=== PATIENT | female | born 1970 | race Caucasian/White ===

== ENCOUNTER → 2016-12-24 | Outpatient (CLI) | payer OTHER | END | disposition home or self-care (01) | LOC: RAD 20:55 | PROVIDERS: ATTEND Physician Assistant | DX: R05 Cough (principal) | CPT/HCPCS: 71020 ==

== ENCOUNTER → 2017-05-17 | Outpatient (CLI) | payer OTHER | END | disposition home or self-care (01) | LOC: CFH 10:09 | PROVIDERS: ATTEND Physician Assistant Surgical | DX: M22.42 Chondromalacia patellae, left knee (principal); M25.462 Effusion, left knee; R60.0 Localized edema ==

== ENCOUNTER → 2018-02-13 | Outpatient (CLI) | payer OTHER ==
[~2018-02-13] MED LIST: HYDR200T72 PO; MULT-658 PO; MYCO500T PO
== END ==
LOC: STAR 08:19
PROVIDERS: ATTEND Orthopaedic Surgery
DX: Z02.9 Encounter for administrative examinations, unspecified (principal)

== ENCOUNTER 2018-02-20 10:33 | Day surgery (SDC) | payer OTHER ==
[~2018-02-20] VITALS: Ht 158.8 cm; Wt 66.1 kg
[~2018-02-20 10:33] MED LIST changes: +BUPIVACAINE/PF-EPI 0.5% 1:200K ONE; +EPINEPHRINE 1 MG/ML, 1ML ONE; +LIDOCAINE-MPF 1%, 5ML ONE
[2018-02-20] MEDS ORDERED: MIDAZOLAM 1 MG/ML, 2ML ONE (11:03)
[2018-02-20] MEDS ORDERED: FENTANYL PF 250 MCG/5ML ONE (11:04)
[2018-02-20] MEDS ORDERED: PROPOFOL 10 MG/ML, 20ML ONE (11:06)
[2018-02-20] MEDS ORDERED: ONDANSETRON 2MG/ML, 2ML ONE ×2 (11:07)
[2018-02-20] MEDS ORDERED: DEXAMETHASONE 4 MG/ML, 1ML ONE ×2 (11:07)
[2018-02-20] MEDS ORDERED: WATER-INJECTION,STERILE 10 ML IV ONE (11:16)
[2018-02-20] MEDS ORDERED: CEFAZOLIN 1,000 MG ONE ×2 (11:16)
[2018-02-20 11:29] LABS: HCG UR SG 1.023 (1.003-1.030)
[2018-02-20] MEDS ORDERED: ONDANSETRON 2MG/ML, 2ML IV PRN (11:30)
[2018-02-20] MEDS ORDERED: HYDROmorphone 1 MG/ML, 1ML IV PRN (11:30)
[2018-02-20] MEDS ORDERED: LACTATED RINGERS 1,000 ML IV SCH (11:30)
[2018-02-20] MEDS ORDERED: ONDANSETRON ODT 8 MG PO PRN (11:30)
[2018-02-20] MEDS ORDERED: PROMETHAZINE 25 MG SUPP PR PRN (11:30)
[2018-02-20] MEDS ORDERED: ACETAMINOPHEN 325 MG TABLET PO PRN (11:30)
[2018-02-20] MEDS ORDERED: hydrALAzine 20 MG/ML, 1ML IV PRN (11:30)
[2018-02-20] MEDS ORDERED: PROMETHAZINE 25 MG/ML, 1ML IV PRN (11:30)
[2018-02-20] MEDS ORDERED: LABETALOL 5MG/ML, 20ML IV PRN (11:30)
[2018-02-20] MEDS ORDERED: MORPHINE SULFATE 4 MG/ML, 1ML IVPush PRN (11:30)
[2018-02-20] MEDS ORDERED: MEPERIDINE/PF 25MG/0.5ML IVPush PRN (11:30)
[2018-02-20] MEDS ORDERED: PROMETHAZINE 12.5 MG SUPP PR PRN (11:30)
[2018-02-20] MEDS ORDERED: LIDOCAINE-MPF 1%, 2ML INFIL ONE (11:30)
[2018-02-20] MEDS ORDERED: OXYcodone 5 MG/5 ML ORAL.SOL UDC PO PRN (11:30)
[2018-02-20] MEDS ORDERED: KETOROLAC 30 MG/1 ML ONE (12:08)
[2018-02-20] MEDS ORDERED: LIDOCAINE 1%-EPI 1:100K, 30ML INFIL ONE (12:20)
[2018-02-20] MEDS ORDERED: BUPIVACAINE/PF-EPI 0.5% 1:200K INFIL ONE (12:21)
[2018-02-20] MEDS ORDERED: OXYcodone 5 MG/5 ML ORAL.SOL UDC ONE (12:59)
[2018-02-20] MEDS ORDERED: FENTANYL PF 100 MCG/2ML ONE (12:59)
[2018-02-20] MEDS: FENTANYL PF 100 MCG/2ML IV PRN ×2 (13:03→13:11)
[2018-02-20] MEDS ORDERED: DIPHENHYDRAMINE 50 MG/ML, 1ML ONE (13:18)
[2018-02-20] MEDS ORDERED: DIPHENHYDRAMINE 50 MG/ML, 1ML IVPush ONE (13:30)
== END 2018-02-20 15:55 ==
LOC: OUT 10:33
PROVIDERS: ATTEND Orthopaedic Surgery
DX: M65.862 Other synovitis and tenosynovitis, left lower leg (principal); M94.262 Chondromalacia, left knee; S83.282A Other tear of lateral meniscus, current injury, left knee, initial encounter; D64.9 Anemia, unspecified; X58.XXXA Exposure to other specified factors, initial encounter; Y93.89 Activity, other specified; Y92.89 Other specified places as the place of occurrence of the external cause; Y99.8 Other external cause status; Z88.1 Allergy status to other antibiotic agents; Z88.0 Allergy status to penicillin; Z72.89 Other problems related to lifestyle
CPT/HCPCS: 29876; 29881; 81025; J1200; J3010; J3490; J7120; J0171; J0690; J1100; J1885; J2250; J2405; J2704

== ENCOUNTER → 2019-12-18 | Outpatient (CLI) | payer OTHER ==
[~2019-12-18] MED LIST changes: -BUPIVACAINE/PF-EPI 0.5% 1:200K ONE; -EPINEPHRINE 1 MG/ML, 1ML ONE; -LIDOCAINE-MPF 1%, 5ML ONE; +NAPR220C62 PO; +OMEP-110 PO; +iron PO
[2019-12-18 16:38] LABS: BASOPHILS # (AUTO) 0.04 x10^3/uL (0-0.1); BASOPHILS % (AUTO) 1 % (0-1); EOSINOPHILS # (AUTO) 0.16 x10^3/uL (0-0.4); EOSINOPHILS % (AUTO) 2 % (1-7); LYMPHOCYTES # (AUTO) 2.94 x10^3/uL (1-3.4); LYMPHOCYTES % (AUTO) 37 % (22-44); MD NO; MEAN CORPUSCULAR HEMOGLOBIN 27.4 pg (27.0-34.8); MEAN CORPUSCULAR HGB CONC 33.1 g/dL (32.4-35.8); MEAN CORPUSCULAR VOLUME 82.7 fL (80-100); MEAN PLATELET VOLUME 6.6 fL (7.4-10.4); MONOCYTES # (AUTO) 0.51 x10^3/uL (0.2-0.8); MONOCYTES % (AUTO) 6 % (2-9); NEUTROPHILS # (AUTO) 4.27 x10^3/uL (1.8-6.8); NEUTROPHILS % (AUTO) 54 % (42-75); PLATELET COUNT 372 x10^3/uL (130-400); RED CELL DISTRIBUTION WIDTH 14.9 % (9.6-15.2)
== END | disposition home or self-care (01) ==
LOC: STAR 15:33
PROVIDERS: ATTEND Orthopaedic Surgery
DX: Z01.818 Encounter for other preprocedural examination (principal); M25.511 Pain in right shoulder; M75.41 Impingement syndrome of right shoulder
CPT/HCPCS: 36415; 85025

== ENCOUNTER 2019-12-24 11:23 | Day surgery (SDC) | payer OTHER ==
[~2019-12-24] VITALS: Ht 160 cm; Wt 66.0 kg
[~2019-12-24 11:23] MED LIST changes: +BUPIVACAINE/PF-EPI 0.5% 1:200K ONE; +LIDOCAINE 1%-EPI 1:100K, 20ML ONE
[2019-12-24] MEDS ORDERED: LIDOCAINE-MPF 1%, 2ML INFIL ONE (11:30)
[2019-12-24] MEDS ORDERED: CHLORHEXIDINE 15 ML UDC MM ONE (11:30)
[2019-12-24] MEDS ORDERED: LACTATED RINGERS 1,000 ML IV SCH (11:30)
[2019-12-24] MEDS ORDERED: GABAPENTIN 300 MG CAPSULE PO ONE (12:00)
[2019-12-24] MEDS ORDERED: ACETAMINOPHEN 500 MG TABLET PO ONE (12:00)
[2019-12-24] MEDS ORDERED: SCOPOLAMINE 1MG PATCH TD SCH (12:00)
[2019-12-24 12:01] VITALS: BP 123/87
[2019-12-24] MEDS ORDERED: FENTANYL PF 250 MCG/5ML ONE (12:04)
[2019-12-24] MEDS ORDERED: MIDAZOLAM 1 MG/ML, 2ML ONE (12:04)
[2019-12-24] MEDS ORDERED: CEFAZOLIN 1,000 MG ONE (12:07)
[2019-12-24] MEDS ORDERED: ROPIvacaine/PF 0.2%, 20 ML ONE (12:07)
[2019-12-24] MEDS ORDERED: DEXAMETHASONE 4 MG/ML, 1ML ONE (12:07)
[2019-12-24] MEDS ORDERED: ROCURONIUM 10MG/ML,5ML ONE (12:07)
[2019-12-24] MEDS ORDERED: PROPOFOL 10 MG/ML, 20ML ONE (12:07)
[2019-12-24] MEDS ORDERED: NEOSTIGMINE 1 MG/ML, 10ML ONE (12:07)
[2019-12-24] MEDS ORDERED: GLYCOPYRROLATE 0.2MG/1ML, 5ML ONE (12:07)
[2019-12-24] MEDS ORDERED: ONDANSETRON 2MG/ML, 2ML ONE (12:07)
[2019-12-24] MEDS ORDERED: LABETALOL 5MG/ML, 20ML IV PRN (14:00)
[2019-12-24] MEDS ORDERED: PROMETHAZINE 25 MG/ML, 1ML IVPush PRN (14:00)
[2019-12-24] MEDS ORDERED: morphine SULFATE 10 MG/ML, 1ML IVPush PRN (14:00)
[2019-12-24] MEDS ORDERED: HYDROmorphone 1 MG/ML, 1ML INJ IVPush PRN (14:00)
[2019-12-24] MEDS ORDERED: HALOPERIDOL 5 MG/ML IV PRN (14:00)
[2019-12-24] MEDS ORDERED: hydrALAzine 20 MG/ML, 1ML IV PRN (14:00)
[2019-12-24] MEDS ORDERED: FENTANYL PF 100 MCG/2ML IV PRN (14:00)
[2019-12-24] MEDS ORDERED: OXYcodone 5 MG/5 ML ORAL.SOL UDC PO PRN (14:00)
[2019-12-24] MEDS ORDERED: MEPERIDINE/PF 25MG/0.5ML IVPush PRN (14:00)
[2019-12-24] MEDS ORDERED: NAPROXEN 250 MG TABLET PO SCH (21:00)
[2019-12-24] MEDS ORDERED: FERROUS SULFATE 325 MG TABLET PO SCH (21:00)
[2019-12-25] MEDS ORDERED: OMEPRAZOLE 20 MG CAPSULE.DR PO SCH (07:00)
[2019-12-25] MEDS ORDERED: HYDROXYCHLOROQUINE 200 MG TABLET PO SCH (09:00)
== END 2019-12-24 17:20 | disposition home or self-care (01) ==
LOC: OUT 11:23
PROVIDERS: ATTEND Orthopaedic Surgery
DX: S43.431A Superior glenoid labrum lesion of right shoulder, initial encounter (principal); M75.01 Adhesive capsulitis of right shoulder; M75.41 Impingement syndrome of right shoulder; M19.011 Primary osteoarthritis, right shoulder; M65.811 Other synovitis and tenosynovitis, right shoulder; M75.51 Bursitis of right shoulder; M32.9 Systemic lupus erythematosus, unspecified; K21.9 Gastro-esophageal reflux disease without esophagitis; Z79.899 Other long term (current) drug therapy; Z87.891 Personal history of nicotine dependence; Z88.2 Allergy status to sulfonamides; Z88.8 Allergy status to other drugs, medicaments and biological substances; Z98.890 Other specified postprocedural states; Z82.61 Family history of arthritis; X58.XXXA Exposure to other specified factors, initial encounter; Y93.89 Activity, other specified; Y92.89 Other specified places as the place of occurrence of the external cause; Y99.8 Other external cause status
CPT/HCPCS: 29823; 29824; 29826; 64415; 81025; J0690; J1100; J2250; J2405; J2704; J2710; J2795; J3010; J3490; J7120; U0001

== ENCOUNTER 2020-04-18 16:20 | Emergency (ER) | payer OTHER ==
[~2020-04-18] VITALS: Ht 160 cm; Wt 65.1 kg
[~2020-04-18 16:20] MED LIST changes: -BUPIVACAINE/PF-EPI 0.5% 1:200K ONE; -LIDOCAINE 1%-EPI 1:100K, 20ML ONE
--- NOTE | 2020-04-18 16:23 | NUR ---
Note undpresley in EDM - 04/18/20 at 1626 by LINDA ASSUMED CARE OF PATIENT. PATIENT REPORTS HE FEELS LIKE HE HAS MACARONI AND CHEESE STUCK IN HIS THROAT. PT IS SUPPOSED TO HAVE ESOPHAGEAL SURGERY NEXT WEEK. NO AIRWAY COMPROMISE NOTED. VS STABLE. CALL LIGHT IN PLACE. WILL CONTINUE TO MONITOR.
[2020-04-18] MEDS ORDERED: OMEP40CA42 PO (16:44)
--- NOTE | 2020-04-18 16:49 | NUR ---
DAJUAN IBARRA AT FOR EXAM. PT REPORTS SHE WAS SENT FROM [facility] TO ED FOR EVAL. FEVER AT HOME 102 LAST NOC, DIARRHEA, CHILLS, RUQ PAIN. DENIES UTI SX. LAST BM: DIARRHEA TODAY. LAST ORAL INTAKE: 1400 SOLID FOOD. LMP: 1 MONTH.
[2020-04-18 17:04] LABS: BASOPHILS # (AUTO) 0.02 x10^3/uL (0-0.1); BASOPHILS % (AUTO) 0 % (0-1); EOSINOPHILS # (AUTO) 0.01 x10^3/uL (0-0.4); EOSINOPHILS % (AUTO) 0 % (1-7); LYMPHOCYTES # (AUTO) 1.83 x10^3/uL (1-3.4); LYMPHOCYTES % (AUTO) 32 % (22-44); MD NO; MEAN CORPUSCULAR HEMOGLOBIN 28.2 pg (27.0-34.8); MEAN CORPUSCULAR HGB CONC 34.3 g/dL (32.4-35.8); MEAN CORPUSCULAR VOLUME 82.2 fL (80-100); MEAN PLATELET VOLUME 6.6 fL (7.4-10.4); MONOCYTES # (AUTO) 0.47 x10^3/uL (0.2-0.8); MONOCYTES % (AUTO) 8 % (2-9); NEUTROPHILS # (AUTO) 3.38 x10^3/uL (1.8-6.8); NEUTROPHILS % (AUTO) 59 % (42-75); PLATELET COUNT 325 x10^3/uL (130-400); RED BLOOD COUNT 4.88 x10^6/uL (3.82-5.3); RED CELL DISTRIBUTION WIDTH 12.5 % (9.6-15.2)
[2020-04-18 17:16] LABS: ALBUMIN 3.6 g/dL (3.4-5.0); ANION GAP 7 mmol/L (5-15); CALCIUM 8.9 mg/dL (8.5-10.1); CHLORIDE 106 mmol/L (98-107); CREATININE 0.84 mg/dL (0.55-1.02)
[2020-04-18 17:21] LABS: HCG UR SG 1.015 (1.003-1.030); MICROSCOPIC NOT IND
--- NOTE | 2020-04-18 17:43 | NUR ---
PT REPORT TO ERNESTO MARTINEZ RN. PT CARE TRANSFERRED.
[2020-04-18] MEDS ORDERED: ACETAMINOPHEN 500 MG TABLET ONE (18:15)
--- NOTE | 2020-04-18 18:22 | NUR ---
PT AWAITING CT
--- NOTE | 2020-04-18 18:25 | NUR ---
TO CT PER ALIX
[2020-04-18] MEDS ORDERED: SODIUM CHLORIDE 0.9% 1,000ML IVBOLUS ONE (18:30)
[2020-04-18] MEDS ORDERED: ACETAMINOPHEN 500 MG TABLET PO ONE (18:30)
[2020-04-18] MEDS ORDERED: OMNIPAQUE 350 MG/ML, 100ML BOTTLE ONE (18:44)
--- NOTE | 2020-04-18 18:57 | NUR ---
TYLENOL GIVEN, NS BOLUS HUNG. IV SITE PATENT.
--- NOTE | 2020-04-18 20:01 | NUR ---
AMBULATORY TO & FROM [facility] W/OUT INCIDENT; GAIT STEADY.
--- NOTE | 2020-04-18 20:25 | NUR ---
PT REQUESTED MENSTRUAL TAMPON; MENSTRUAL PAD PROVIDED. PT REPORTS MENSES JUST STARTED.
--- NOTE | 2020-04-18 20:26 | NUR ---
CALLED [facility]; PER TECH, PT IS NEXT.
[2020-04-18 21:26] VITALS: BP 102/58
--- NOTE | 2020-04-18 22:01 | NUR ---
REPORT OF PT FROM JACKI HICKMAN AND ASSUMING CARE OF PT AT THIS TIME.
--- NOTE | 2020-04-18 22:45 | NUR ---
PT D/C WITH D/C SUMMARY AND SCRIPTS. ALL QUESTIONS ANSWERED. PT AMBULATES TO REGISTRATION DESK WITH STEADY GAIT FOR D/C HOME. PT PIV D/C WITH TIP INTACT. PT DENIES ANY OTHER NEEDS PERTAINING TO THIS VISIT.
== END 2020-04-18 22:56 | disposition home or self-care (01) ==
LOC: ED 18:21
DX: R10.31 Right lower quadrant pain (principal); R19.7 Diarrhea, unspecified; R11.0 Nausea
CPT/HCPCS: 36415; 74177; 76830; 80048; 81003; 81025; 82040; 85025; 96360; 99285; J7030; Q9967

== ENCOUNTER 2020-04-22 09:49 | Emergency (ER) | payer OTHER ==
[~2020-04-22] VITALS: Ht 160 cm; Wt 64.2 kg
[~2020-04-22 09:49] MED LIST changes: +OMEP40CA42 PO
[2020-04-22 11:06] LABS: MEAN CORPUSCULAR HEMOGLOBIN 26.8 pg (27.0-34.8); MEAN CORPUSCULAR HGB CONC 32.4 g/dL (32.4-35.8); MEAN CORPUSCULAR VOLUME 82.9 fL (80-100); MEAN PLATELET VOLUME 6.8 fL (7.4-10.4); PLATELET COUNT 280 x10^3/uL (130-400); RED BLOOD COUNT 4.55 x10^6/uL (3.82-5.3); RED CELL DISTRIBUTION WIDTH 13.1 % (9.6-15.2)
[2020-04-22 11:08] LABS: ALANINE AMINOTRANSFERASE 109 U/L (12-78); ALBUMIN 3.2 g/dL (3.4-5.0); ANION GAP 5 mmol/L (5-15); CALCIUM 8.8 mg/dL (8.5-10.1); CHLORIDE 109 mmol/L (98-107)
[2020-04-22 11:19] LABS: MD YES
[2020-04-22 11:22] LABS: BAND#(MANUAL) 0.26 x10^3/uL; BANDS%(MANUAL) 6 % (0-7); LYMPH#(MANUAL) 1.63 x10^3/uL (1-3.4); LYMPHS% (MANUAL) 38 % (22-44); MONOS#(MANUAL) 0.34 x10^3/uL (0.3-2.7); MONOS% (MANUAL) 8 % (2-9); SEG#(MANUAL) 2.06 x10^3/uL (1.8-6.8); SEGS% (MANUAL) 48 % (42-75)
[2020-04-22 11:23] LABS: <PLATELET ESTIMATE> ADEQUATE; <PLT MORPHOLOGY> NORMAL PLT MORPH; <RBC MORPHOLOGY> NORMAL
[2020-04-22 11:26] LABS: ALKALINE PHOSPHATASE 104 U/L (45-117); BILIRUBIN,TOTAL 0.2 mg/dL (0.2-1.0); CREATININE 0.74 mg/dL (0.55-1.02); TOTAL PROTEIN 7.1 g/dL (6.4-8.2)
[2020-04-22 11:46] VITALS: BP 97/65
== END 2020-04-22 12:05 | disposition home or self-care (01) ==
LOC: ED 09:51
DX: J06.9 Acute upper respiratory infection, unspecified (principal); R50.9 Fever, unspecified; R00.0 Tachycardia, unspecified; Z87.891 Personal history of nicotine dependence
CPT/HCPCS: 36415; 71045; 80053; 85025; 87635; 93005; 99285

== ENCOUNTER 2021-03-06 18:13 | Emergency (ER) | payer OTHER ==
[~2021-03-06] VITALS: Ht 160 cm; Wt 65.0 kg
[~2021-03-06 18:13] MED LIST changes: -OMEP40CA42 PO; +OMEP40CA8 PO
[2021-03-06 19:20] LABS: BASOPHILS % (AUTO) 1 % (0-1); EOSINOPHILS % (AUTO) 1 % (1-7); LYMPHOCYTES % (AUTO) 42 % (22-44); MEAN CORPUSCULAR HEMOGLOBIN 26.8 pg (27.0-34.8); MEAN CORPUSCULAR HGB CONC 33.7 g/dL (32.4-35.8); MEAN PLATELET VOLUME 6.9 fL (7.4-10.4); MONOCYTES % (AUTO) 7 % (2-9); NEUTROPHILS % (AUTO) 49 % (42-75); PLATELET COUNT 412 x10^3/uL (130-400); RED BLOOD COUNT 4.93 x10^6/uL (3.82-5.3); RED CELL DISTRIBUTION WIDTH 15.9 % (9.6-15.2)
[2021-03-06 19:30] LABS: ALBUMIN 3.9 g/dL (3.4-5.0); ANION GAP 5 mmol/L (5-15); CALCIUM 8.9 mg/dL (8.5-10.1); CHLORIDE 107 mmol/L (98-107)
[2021-03-06 19:35] LABS: ALANINE AMINOTRANSFERASE 40 U/L (12-78); ALKALINE PHOSPHATASE 76 U/L (45-117); BILIRUBIN,TOTAL 0.3 mg/dL (0.2-1.0); CREATININE 0.86 mg/dL (0.55-1.02); TOTAL PROTEIN 7.8 g/dL (6.4-8.2)
--- NOTE | 2021-03-06 21:38 | NUR ---
CHRONIC MANAGER: PT. TO ROOM FROM LOBBY AT THIS TIME.
[2021-03-06] MEDS ORDERED: ACETAMINOPHEN 500 MG TABLET PO ONE (22:00)
--- NOTE | 2021-03-06 22:00 | NUR ---
pt c/o of right flank pain since 1499 today pt denies faver/chills, n/v/d, and urinary symptoms. attached to monitors. vss. vasques. bed in low position, call light on lap. rails engaged. Addendum: 03/06/21 at 2207 by [email or web address] pt reports she has been on period for 9 days now and it usually stops after 7 days
[2021-03-06] MEDS ORDERED: ACETAMINOPHEN 500 MG TABLET ONE (22:06)
[2021-03-06 22:20] LABS: MICROSCOPIC INDICATED
[2021-03-06 23:09] VITALS: BP 126/79
--- NOTE | 2021-03-06 23:21 | NUR ---
Patient/Caregiver given discharge instructions and they have confirmed that they understand the instructions. Patient ambulatory with steady gait. NAD, all questions answered appropriately, denies additional needs at this time. No personal belongings left in room after discharge.
== END 2021-03-06 23:23 | disposition home or self-care (01) ==
LOC: ED 22:31
DX: R10.31 Right lower quadrant pain (principal); R42 Dizziness and giddiness; N93.8 Other specified abnormal uterine and vaginal bleeding; N92.4 Excessive bleeding in the premenopausal period
CPT/HCPCS: 36415; 76830; 80053; 81001; 84703; 85025; 99284